=== PATIENT | female | born 1995 | race Caucasian/White ===

== ENCOUNTER 2017-06-28 13:12 | Observation (INO) | payer OTHER ==
[2017-06-28] MEDS ORDERED: Sodium Chloride 0.9% 1000 ML 1,000 ML IV STA (13:15)
--- NOTE | 2017-06-28 13:21 | ERPHSYRPT ---
- History of Present Illness Time Seen by Provider: 06/28/17 13:16 Source: patient Exam Limitations: no limitations Physician History: This is a 22-year-old white female who states that she is 5 months who is brought by the medics with complaint that the patient took 30 trazodone (150 mg tablets) Approximately 30 minutes prior to arrival Patient states that she was upset with her sister she states that her sister yells at her a lot and I had threatened to kick her out of her house. Patient states she has not taken anything other than the trazodone Patient was noted to be somnolent by the medics and was given Narcan 1 mg IV prior to arrival. Patient states she has had a suicide attempt in the past. Patient does have a history of depression past medical history includes depression Past surgical history negative Social history patient denies tobacco alcohol or illicit drug use Timing/Duration: today (him 30 minutes prior to arrival) Severity: moderate Modifying Factors: Improves With: medication (patient took 30 (150 mg) trazodone tablets) Associated Symptoms: vomiting, No shortness of breath, No heartburn, No diaphoresis, No cough, No chills, No chest pain, No fever, No headaches, No loss of appetite, No malaise, No rash, No syncope, No seizure, No weakness Allergies/Adverse Reactions: aripiprazole [From Abilify] Allergy (Verified 06/28/17 13:20) ziprasidone [From Geodon] Allergy (Verified 06/28/17 13:20) - Review of Systems Constitutional: No Fever, No Chills Eyes: No Symptoms Ears, Nose, & Throat: No Symptoms Respiratory: No Cough, No Dyspnea Cardiac: No Chest Pain, No Edema, No Syncope Abdominal/Gastrointestinal: Nausea, Vomiting Genitourinary Symptoms: (20 week ), No Dysuria Musculoskeletal: No Back Pain, No Neck Pain Skin: No Rash Psychological: Suicidal Ideations, Other (intentional overdose trazodone) Endocrine: No Symptoms - Past Medical History Pertinent Past Medical History: Yes Other Medical History: patient states she is 20 weeks , lidocaine nurse states patient 19 weeks by dates,. patient with history of depression history of suicide attempt in the past - Past Surgical History Past Surgical History: No - Nursing Vital Signs Nursing Vital Signs: Initial Vital Signs Temperature 99 F 06/28/17 13:23 Pulse Rate 84 05/20/18 13:23 Respiratory Rate 16 06/28/17 13:23 Blood Pressure 127/64 06/28/17 13:23 O2 Sat by Pulse Oximetry 95 06/28/17 13:23 Pain Scale Pain Intensity 0 - Physical Exam General Appearance: other (well-developed white female, somnolent but arouses easily) Eye Exam: PERRL/EOMI, eyes nml inspection Ears, Nose, Throat Exam: normal ENT inspection, TMs normal, pharynx normal, moist mucous membranes Neck Exam: normal inspection, non-tender, supple, full range of motion Respiratory Exam: normal breath sounds, lungs clear, No respiratory distress Cardiovascular Exam: regular rate/rhythm, normal heart sounds, normal peripheral pulses Gastrointestinal/Abdomen Exam: soft, normal bowel sounds, other ( heart tones 140 per nurse), No tenderness, No mass Back Exam: normal inspection, normal range of motion, No CVA tenderness, No vertebral tenderness Extremity Exam: normal inspection, normal range of motion, pelvis stable Neurologic Exam: oriented x 3, cooperative, blanking press operator II-XII nml as tested, other ( well-developed white female somnolent but arouses easily oriented 3 GCS equals 15 full range of motion all extremities) Skin Exam: normal color, warm, dry, No rash Lymphatic Exam: No adenopathy SpO2 Interpretation: normal (95%hhim. 95) - Course Nursing assessment & vital signs reviewed: Yes EKG Interpreted by Me: RATE (80 bpm), Sinus Rhythm, NORMAL AXIS, Other (EKG: Normal sinus rhythm 80 bpm, normal axis, no acute ST or T wave changes, essentially normal EKG) Ordered Tests: Active Orders 24 hr Category Date Time Status EKG-ER Only STAT Care 06/28/17 13:15 Active IV Insertion STAT Care 06/28/17 13:15 Active Pulse Oximetry (ED) STAT Care 06/28/17 13:15 Active ACETAMINOPHEN Stat Lab 06/28/17 13:27 Completed CBC W DIFF Stat Lab 06/28/17 13:27 Completed CMP Stat Lab 06/28/17 13:27 Completed CULTURE,URINE Stat Lab 06/28/17 13:45 Received ETHYL ALCOHOL Stat Lab 06/28/17 13:27 Completed HCG QUALITATIVE,SERUM Stat Lab 06/28/17 13:27 Completed Manual Differential NC Stat Lab 06/28/17 13:27 Completed SALICYLATE Stat Lab 06/28/17 13:27 Completed UA W/ MICROSCOPIC Stat Lab 06/28/17 13:45 Completed Urine Triage Profile Stat Lab 06/28/17 13:45 Completed Medication Summary Generic Name Dose Route Start Last Admin Trade Name Mode PRN Reason Stop Dose Admin Magnesium Sulfate/Dextrose 100 mls @ 200 mls/hr 06/28/17 14:15 06/28/17 14:30 Magnesium 1 Gm / 100 Ml D5w IV 06/28/17 15:44 200 mls/hr Q1H SURAJ Administration Potassium Chloride 100 mls @ 50 mls/hr 06/28/17 14:15 06/28/17 14:16 Potassium Chloride 20 Meq In Water 100ml IV 06/28/17 18:14 50 mls/hr Q2H SURAJ Administration Discontinued Medications Generic Name Dose Route Start Last Admin Trade Name Mode PRN Reason Stop Dose Admin Sodium Chloride 1,000 mls @ 999 mls/hr 06/28/17 13:15 06/28/17 13:37 Sodium Chloride 0.9% 1000 Ml IV 06/28/17 14:15 999 mls/hr .Q1H1M STA Administration Sodium Chloride Confirm 06/28/17 13:36 Sodium Chloride 0.9% 1000 Ml Administered 06/28/17 13:37 Dose 1,000 mls @ ud .ROUTE .[facility] Lab/Rad Data: Laboratory Result Diagrams 06/28/17 13:27 06/28/17 13:27 Laboratory Results 06/28/17 06/28/17 06/28/17 Range/Units 13:45 13:45 13:27 WBC (4.0-10.5) K/mm3 RBC (4.1-5.4) M/mm3 Hgb (12.0-16.0) gm/dl Hct (35-47) % MCV (78-100) fl MCH (26-32) pg MCHC (32-36) g/dl RDW (11.5-14.0) % Plt Count (150-450) K/mm3 MPV (6-9.5) fl Segmented Neutrophils (36.0-66.0) % Band Neutrophils (0.0-2.0) % Lymphocytes (Manual) (24-44) % Monocytes (Manual) (0.0-12.0) % Platelet Estimate (NORMAL) RBC Morphology Anisocytosis Sodium (137-145) mmol/L Potassium (3.5-5.1) mmol/L Chloride (98-107) mmol/L Carbon Dioxide (22-30) mmol/L Anion Gap (5-15) MEQ/L BUN (7-17) mg/dL Creatinine (0.52-1.04) mg/dL Estimated GFR ML/MIN Glucose (74-106) mg/dL Calcium (8.4-10.2) mg/dL Total Bilirubin (0.2-1.3) mg/dL AST (14-36) U/L ALT (0-35) U/L Alkaline Phosphatase (38-126) U/L Serum Total Protein (6.3-8.2) g/dL Albumin (3.5-5.0) g/dL Serum , Qual POSITIVE (Negative) Ur Collection Type CATH Urine Color YELLOW (YELLOW) Urine Appearance CLEAR (CLEAR) Urine pH 5.0 (5-6) Ur Specific Harvey 1.025 (1.005-1.025) Urine Protein 100 (Negative) Urine Ketones MODERATE (NEGATIVE) Urine Blood 5-10 (0-5) Lexa/ul Urine Nitrite NEGATIVE (NEGATIVE) Urine Bilirubin NEGATIVE (NEGATIVE) Urine Urobilinogen 8 (0-1) mg/dL Ur Leukocyte Esterase NEGATIVE (NEGATIVE) Urine Microscopic RBC 0-2 (0-2) /HPF Urine Microscopic WBC 5-10 (0-5) /HPF Ur Epithelial Cells MODERATE (FEW) /HPF Urine Bacteria FEW (NEGATIVE) /HPF Hyaline Casts 2-5 (0-2) /LPF Urine Mucus MANY (NEGATIVE) /HPF Urine Culture Reflexed YES (NO) Urine Glucose NEGATIVE (NEGATIVE) mg/dL Salicylates (2-20) mg/dL Urine Opiates Level NEGATIVE (NEGATIVE) Ur Methadone NEGATIVE (NEGATIVE) Acetaminophen (10-30) ug/ml Urine Barbiturates NEGATIVE (NEGATIVE) Ur Phencyclidine (PCP) NEGATIVE (NEGATIVE) Urine Amphetamine NEGATIVE (NEGATIVE) U Benzodiazepine Level NEGATIVE (NEGATIVE) Urine Cocaine NEGATIVE (NEGATIVE) Urine Marijuana (THC) NEGATIVE (NEGATIVE) Ethyl Alcohol (0-10) mg/dL Specimen Received 06/28/17 1345 06/28/17 06/28/17 Range/Units 13:27 13:27 WBC 10.1 (4.0-10.5) K/mm3 RBC 3.91 L (4.1-5.4) M/mm3 Hgb 11.9 L (12.0-16.0) gm/dl Hct 33.8 L (35-47) % MCV 86.4 (78-100) fl MCH 30.4 (26-32) pg MCHC 35.2 (32-36) g/dl RDW 12.4 (11.5-14.0) % Plt Count 193 (150-450) K/mm3 MPV 10.1 H (6-9.5) fl Segmented Neutrophils 78 H (36.0-66.0) % Band Neutrophils 1 (0.0-2.0) % Lymphocytes (Manual) 14 L (24-44) % Monocytes (Manual) 7 (0.0-12.0) % Platelet Estimate NORMAL (NORMAL) RBC Morphology ABNORMAL Anisocytosis 1+ Sodium 138 (137-145) mmol/L Potassium 2.9 L* (3.5-5.1) mmol/L Chloride 105 (98-107) mmol/L Carbon Dioxide 20 L (22-30) mmol/L Anion Gap 15.1 H (5-15) MEQ/L BUN 5 L (7-17) mg/dL Creatinine 0.41 L (0.52-1.04) mg/dL Estimated GFR > 60.0 ML/MIN Glucose 105 (74-106) mg/dL Calcium 9.3 (8.4-10.2) mg/dL Total Bilirubin 0.20 (0.2-1.3) mg/dL AST 20 (14-36) U/L ALT 19 (0-35) U/L Alkaline Phosphatase 82 (38-126) U/L Serum Total Protein 6.4 (6.3-8.2) g/dL Albumin 3.7 (3.5-5.0) g/dL Serum , Qual (Negative) Ur Collection Type Urine Color (YELLOW) Urine Appearance (CLEAR) Urine pH (5-6) Ur Specific Harvey (1.005-1.025) Urine Protein (Negative) Urine Ketones (NEGATIVE) Urine Blood (0-5) Lexa/ul Urine Nitrite (NEGATIVE) Urine Bilirubin (NEGATIVE) Urine Urobilinogen (0-1) mg/dL Ur Leukocyte Esterase (NEGATIVE) Urine Microscopic RBC (0-2) /HPF Urine Microscopic WBC (0-5) /HPF Ur Epithelial Cells (FEW) /HPF Urine Bacteria (NEGATIVE) /HPF Hyaline Casts (0-2) /LPF Urine Mucus (NEGATIVE) /HPF Urine Culture Reflexed (NO) Urine Glucose (NEGATIVE) mg/dL Salicylates < 1.0 L (2-20) mg/dL Urine Opiates Level (NEGATIVE) Ur Methadone (NEGATIVE) Acetaminophen < 10 L (10-30) ug/ml Urine Barbiturates (NEGATIVE) Ur Phencyclidine (PCP) (NEGATIVE) Urine Amphetamine (NEGATIVE) U Benzodiazepine Level (NEGATIVE) Urine Cocaine (NEGATIVE) Urine Marijuana (THC) (NEGATIVE) Ethyl Alcohol < 10 (0-10) mg/dL Specimen Received - Progress Progress: improved Progress Note: 06/28/17 13:24 This is a 22-year-old white female who states she is 5 months who is brought by medics with complaint of intentional overdose with trazodone 30 150 milligram tablets approximately 30 minutes prior to arrival. Patient does have a history of depression in the past. Has had a history of suicide attempt in the past. She states that she was upset because her sister yells at her a lot and was threatening to throw her out of the house. Patient did vomit prior to arrival as evidenced by emesis which was noted on her shirt. She denies any illicit drugs or alcohol use. She states she has not taken any thing other than trazodone. Nurses calculated patient's estimated gestational age of her baby to be 19 weeks. heart tones are 140. Patient is a somnolent but arouses quite easily and moves all extremities. IV normal saline has been ordered appropriate labs are ordered nurses will contact poison control 06/28/17 14:16 Poison control recommends IV potassium and magnesium. They recommended giving the patient's potassium up to around 4.5 patient's potassium at this time is 2.9. I've discussed the case briefly with Dr. Urrutia who is [employer] consultant for OB and for the house. He is in agreement with the of magnesium and potassium. He wishes that I discussed the patient's case with patient's OB doctor (Dr. Adam's) patient's urine drug screen negative acetaminophen level less than 10 salicylate less than 1.0 alcohol less than 10. 06/28/17 14:[address] Adam's, the patient's OB physician she requests that Dr. Urrutia manage the patient's case at this time including management of her electrolytes she also requests that the patient obtain a psych consult She states once patient is stabilized, she will continue to follow the patient for care. 06/28/17 14:40 I've discussed the patient again with Dr. Urrutia will place patient on ICU telemetry, heart tones every shift Patient is receiving 40 mEq K rider also magnesium 2 g IV Will continue normal saline 100 mL per hour Will order psych consult for patient Patient will need acetaminophen level IV hours after last draw salicylate level IV hours after last draw And a potassium level IV hours after potassium has infused - Departure Time of Disposition: 14:41 Departure Disposition: Observation Clinical Impression: intentional overdose of trazodone, Suicidal ideation, Hypokalemia Qualifiers: Weeks of gestation: 19 weeks Qualified Code(s): Z3A.19 - 19 weeks gestation of Condition: Fair Critical Care Time: No
[2017-06-28 13:30] LABS: Hematocrit 33.8 % (35-47); Hemoglobin 11.9 gm/dl (12.0-16.0); Mean Cell Volume 86.4 fl (78-100); Mean Corpuscular Hemoglobin 30.4 pg (26-32); Mean Corpuscular Hgb Concent. 35.2 g/dl (32-36); Mean Platelet Volume 10.1 fl (6-9.5); Platelet Count 193 K/mm3 (150-450); Red Blood Count 3.91 M/mm3 (4.1-5.4); Red Cell Distribution Width 12.4 % (11.5-14.0); White Blood Count 10.1 K/mm3 (4.0-10.5)
[2017-06-28] MEDS ORDERED: Sodium Chloride 0.9% 1000 ML 2,000 ML ONE (13:36)
[2017-06-28 13:50] LABS: ALBUMIN 3.7 g/dL (3.5-5.0); ALKALINE PHOSPHATASE 82 U/L (38-126); ANION GAP 15.1 MEQ/L (5-15); BLOOD UREA NITROGEN 5 mg/dL (7-17); CHLORIDE 105 mmol/L (98-107); Calcium 9.3 mg/dL (8.4-10.2); Carbon Dioxide 20 mmol/L (22-30); Creatinine 1 0.41 mg/dL (0.52-1.04); Glucose 105 mg/dL (74-106); SGOT/AST 20 U/L (14-36); SGPT/ALT 19 U/L (0-35); SODIUM 138 mmol/L (137-145); Total Protein 6.4 g/dL (6.3-8.2)
[2017-06-28 13:52] LABS: Appearance CLEAR (CLEAR); Bilirubin NEGATIVE (NEGATIVE); Glucose NEGATIVE (NEGATIVE); Ketones MODERATE (NEGATIVE); Leukocyte Esterase NEGATIVE (NEGATIVE); Nitrite NEGATIVE (NEGATIVE); Protein,Urine Dip 100 (Negative); Specific Gravity 1.025 (1.005-1.025); Urobilinogen 8 mg/dL (0-1)
[2017-06-28 13:58] LABS: ACETAMINOPHEN < 10 ug/ml (10-30); ETHYL ALCOHOL < 10 mg/dL (0-10); Potassium 2.9 mmol/L (3.5-5.1); SALICYLATE < 1.0 mg/dL (2-20)
[2017-06-28 14:04] LABS: Bacteria FEW /HPF (NEGATIVE); Epithelial Cells MODERATE /HPF (FEW); Mucus MANY /HPF (NEGATIVE); RBC 0-2 /HPF (0-2)
[2017-06-28 14:07] LABS: Amphetamine,Urine NEGATIVE (NEGATIVE); Barbiturate,Urine NEGATIVE (NEGATIVE); Benzodiazepine,Urine NEGATIVE (NEGATIVE); Cocaine,Urine NEGATIVE (NEGATIVE); Methadone,Urine NEGATIVE (NEGATIVE); Opiate,Urine NEGATIVE (NEGATIVE); PCP,Urine NEGATIVE (NEGATIVE); THC,Urine NEGATIVE (NEGATIVE)
[2017-06-28 14:09] LABS: BAND 1 % (0.0-2.0); Lymphocytes 14 % (24-44); Monocyte 7 % (0.0-12.0); Neutrophils 78 % (36.0-66.0); Platelet Estimate NORMAL (NORMAL); Total Cells Counted 100
[2017-06-28 14:10] LABS: ANISOCYTOSIS 1+
[2017-06-28] MEDS ORDERED: POTASSIUM CHLORIDE 20 mEq IN WATER 100ML 200 ML IV ONE (14:10)
[2017-06-28] MEDS ORDERED: Magnesium 1 Gm / 100 Ml D5W*** 200 ML IV ONE (14:10)
[2017-06-28] MEDS ORDERED: POTASSIUM CHLORIDE 20 mEq IN WATER 100ML 100 ML IV SCH (14:15)
[2017-06-28] MEDS: Magnesium 1 Gm / 100 Ml D5W*** 100 ML IV SCH ×2 (14:16→14:30)
[2017-06-28] MEDS ORDERED: Sodium Chloride 0.9% 1000 ML 1,000 ML IV SCH (15:18)
[2017-06-28 23:09] LABS: ANION GAP 12.8 MEQ/L (5-15); Potassium 3.3 mmol/L (3.5-5.1)
[2017-06-29] MEDS ORDERED: K-LYTE 25 MEQ PO ONE (00:15)
[2017-06-29] MEDS: Sodium Chloride 0.9% W/ 20 mEq KCl/LITER 1,000 ML IV SCH ×2 (00:15→10:36)
[2017-06-29 05:28] LABS: Granulocyte Absolute (ANC) 7.22 (1.4-6.9); Hematocrit 31.1 % (35-47); Hemoglobin 10.6 gm/dl (12.0-16.0); Mean Cell Volume 88.6 fl (78-100); Mean Corpuscular Hgb Concent. 34.1 g/dl (32-36); Mean Platelet Volume 10.3 fl (6-9.5); Platelet Count 195 K/mm3 (150-450); Red Blood Count 3.51 M/mm3 (4.1-5.4); Red Cell Distribution Width 12.6 % (11.5-14.0)
[2017-06-29 05:35] LABS: Mean Corpuscular Hemoglobin 30.1 pg (26-32)
[2017-06-29 05:44] LABS: ALKALINE PHOSPHATASE 67 U/L (38-126); ANION GAP 10.4 MEQ/L (5-15); BLOOD UREA NITROGEN 3 mg/dL (7-17); CHLORIDE 109 mmol/L (98-107); Calcium 8.3 mg/dL (8.4-10.2); Carbon Dioxide 22 mmol/L (22-30); Creatinine 1 0.41 mg/dL (0.52-1.04); Glucose 82 mg/dL (74-106); Potassium 3.9 mmol/L (3.5-5.1); SGOT/AST 18 U/L (14-36); SGPT/ALT 18 U/L (0-35); SODIUM 138 mmol/L (137-145); Total Protein 5.9 g/dL (6.3-8.2)
[2017-06-29 05:46] LABS: Lymphocytes 14 % (24-44); Monocyte 1 % (0.0-12.0); Neutrophils 85 % (36.0-66.0); Total Cells Counted 100
[2017-06-29 05:47] LABS: Platelet Estimate NORMAL (NORMAL)
--- NOTE | 2017-06-29 08:08 | PCM.HP ---
History of Present Illness - Chief Complaint Chief Complaint: OVERDOSE History of Present Illness: is a 22 year old female at approximately 19 weeks EGA who came to the ER yesterday for a suicide attempt. Patient is under the OB care of Dr Marie in [facility]. She reports she is living with her sister and her sister was "being mean" to her all day yesterday and kept yelling at her even though she states she had done nothing wrong. She reports her sister threatened to throw her out of her house and that she has no where else to live. She is sad because her entire family hates her and she has been thrown out of everywhere else. She has a son who will be 2 years old in September and she reports he lives with his father. She has a history of self-injurious behavior as a child by cutting her wrists and putting belts around her neck. She has been hospitalized at the [facility] in the past. She took 30 tablets of 150mg trazodone yesterday with the intent to kill herself. She states today she does not feel suicidal because everyone in the hospital is being nice to her, she expressed a desire to live at this point. - Review of Systems Constitutional: No Fever, No Chills Respiratory: No Cough, No Short Of Breath Cardiac: No Chest Pain, No Edema, No Syncope Abdominal/Gastrointestinal: No Abdominal Pain, No Nausea, No Vomiting, No Diarrhea Genitourinary Symptoms: No Dysuria Skin: No Rash Neurological: No Dizziness, No Focal Weakness, No Sensory Changes Psychological: No Alcohol Abuse, No Drug Abuse Medications & Allergies Home Medications: Home Medication List Vits W-Ca,Fe,FA(<1Mg) [] 1 each PO DAILY 06/28/17 [History Confirmed 06/28/17] Trazodone HCl 150 mg PO HSPRN PRN 06/28/17 [History Confirmed 06/28/17] Allergies/Adverse Reactions: Allergies Allergy/AdvReac Type Severity Reaction Status Date / Time aripiprazole [From Abilify] Allergy Verified 06/28/17 13:20 ziprasidone [From Geodon] Allergy Verified 06/28/17 13:20 - Past Medical History Past Medical History: Yes Comment: patient states she is 20 weeks , lidocaine nurse states patient 19 weeks by dates,. patient with history of depression history of suicide attempt in the past - Female History Hx Last Menstrual Period: 02/23/17 Are you now?: Yes - Past Surgical History Past Surgical History: No Female Surgical History: Section - Social History Smoking Status: Never smoker Exposure to second hand smoke: No Alcohol: None Drug Use: none - Physical Exam Vital Signs: Vital Signs - 24 hr Temp Pulse Resp BP Pulse Ox 06/29/17 07:50 82 06/29/17 07:00 98.7 F 85 16 115/62 93 L 06/29/17 06:00 90 16 106/67 95 06/29/17 05:00 78 14 92/60 95 06/29/17 04:00 98.6 F 77 14 106/63 95 06/29/17 03:00 78 14 91/65 95 06/29/17 02:00 75 15 96/58 95 06/29/17 01:00 81 16 98/54 97 06/29/17 00:00 84 15 102/56 95 06/28/17 23:17 79 06/28/17 23:00 99.3 F 79 17 112/63 95 06/28/17 19:57 98.9 F 84 20 99/56 96 06/28/17 19:00 93 H 19 107/60 96 06/28/17 18:00 87 18 101/57 95 06/28/17 17:00 82 16 102/59 95 06/28/17 16:00 88 16 104/63 97 06/28/17 15:29 98.8 F 98 H 16 104/63 97 06/28/17 15:18 96 06/28/17 14:50 101 H 16 110/56 96 06/28/17 14:03 78 18 101/57 96 06/28/17 13:24 95 06/28/17 13:23 99 F 84 16 127/64 95 General Appearance: no apparent distress, alert Neurologic Exam: alert, oriented x 3, cooperative, normal mood/affect, nml cerebellar function, nml station & gait, sensation nml, No motor deficits Eye Exam: PERRL/EOMI, eyes nml inspection Respiratory Exam: normal breath sounds, lungs clear, No respiratory distress Cardiovascular Exam: regular rate/rhythm, normal heart sounds, normal peripheral pulses Gastrointestinal/Abdomen Exam: soft, normal bowel sounds, No tenderness, No mass Extremity Exam: normal inspection, normal range of motion, pelvis stable Skin Exam: normal color, warm, dry, No rash Results - Labs Lab/Micro Results: Lab Results-Last 24 Hours 06/28/17 06/28/17 06/28/17 Range/Units 19:31 19:31 22:15 WBC (4.0-10.5) K/mm3 RBC (4.1-5.4) M/mm3 Hgb (12.0-16.0) gm/dl Hct (35-47) % MCV (78-100) fl MCH (26-32) pg MCHC (32-36) g/dl RDW (11.5-14.0) % Plt Count (150-450) K/mm3 MPV (6-9.5) fl Absolute Granulocytes (1.4-6.9) Segmented Neutrophils (36.0-66.0) % Lymphocytes (Manual) (24-44) % Monocytes (Manual) (0.0-12.0) % Platelet Estimate (NORMAL) RBC Morphology Sodium 137 (137-145) mmol/L Potassium 3.7 3.3 L (3.5-5.1) mmol/L Chloride 108 H (98-107) mmol/L Carbon Dioxide 20 L (22-30) mmol/L Anion Gap 12.8 (5-15) MEQ/L BUN (7-17) mg/dL Creatinine (0.52-1.04) mg/dL Estimated GFR ML/MIN Glucose (74-106) mg/dL Calcium (8.4-10.2) mg/dL Total Bilirubin (0.2-1.3) mg/dL AST (14-36) U/L ALT (0-35) U/L Alkaline Phosphatase (38-126) U/L Serum Total Protein (6.3-8.2) g/dL Albumin (3.5-5.0) g/dL Acetaminophen < 10 L (10-30) ug/ml 06/29/17 06/29/17 Range/Units 05:13 05:13 WBC 10.0 (4.0-10.5) K/mm3 RBC 3.51 L (4.1-5.4) M/mm3 Hgb 10.6 L (12.0-16.0) gm/dl Hct 31.1 L (35-47) % MCV 88.6 (78-100) fl MCH 30.1 (26-32) pg MCHC 34.1 (32-36) g/dl RDW 12.6 (11.5-14.0) % Plt Count 195 (150-450) K/mm3 MPV 10.3 H (6-9.5) fl Absolute Granulocytes 7.22 H (1.4-6.9) Segmented Neutrophils 85 H (36.0-66.0) % Lymphocytes (Manual) 14 L (24-44) % Monocytes (Manual) 1 (0.0-12.0) % Platelet Estimate NORMAL (NORMAL) RBC Morphology NORMAL Sodium 138 (137-145) mmol/L Potassium 3.9 (3.5-5.1) mmol/L Chloride 109 H (98-107) mmol/L Carbon Dioxide 22 (22-30) mmol/L Anion Gap 10.4 (5-15) MEQ/L BUN 3 L (7-17) mg/dL Creatinine 0.41 L (0.52-1.04) mg/dL Estimated GFR > 60.0 ML/MIN Glucose 82 (74-106) mg/dL Calcium 8.3 L (8.4-10.2) mg/dL Total Bilirubin 0.20 (0.2-1.3) mg/dL AST 18 (14-36) U/L ALT 18 (0-35) U/L Alkaline Phosphatase 67 (38-126) U/L Serum Total Protein 5.9 L (6.3-8.2) g/dL Albumin 3.0 L (3.5-5.0) g/dL Acetaminophen (10-30) ug/ml Assessment/Plan (1) Overdose Current Visit: Yes Status: Acute Assessment & Plan: trazodone intentional overdose, nothing worrisome on telemetry or EKG, patient is alert and oriented this morning. will obtain psych consult Code(s): T50.901A - POISONING BY UNSP DRUG/MEDS/BIOL SUBST, ACCIDENTAL, INIT (2) Hypokalemia Current Visit: Yes Status: Acute Assessment & Plan: replaced Code(s): E87.6 - HYPOKALEMIA (3) Current Visit: Yes Status: Acute Qualifiers: Weeks of gestation: 19 weeks Qualified Code(s): Z3A.19 - 19 weeks gestation of Assessment & Plan: will f/u with Dr Heard after discharge Code(s): Z34.90 - ENCNTR FOR SUPRVSN OF NORMAL , UNSP, UNSP TRIMESTER (4) Suicidal ideation Current Visit: Yes Status: Acute Assessment & Plan: patient's history if worrisome Code(s): R45.851 - SUICIDAL IDEATIONS
[2017-06-29] MEDS ORDERED: THERAGRAN MULTIVITAMIN PO SCH (10:00)
[2017-06-29] MEDS ORDERED: NON-FORMULARY ITEM (Prenatal Vits W-Ca,Fe,Fa(<1mg) [Prenatal] 1 EACH) PO SCH (10:00)
--- NOTE | 2017-06-29 16:10 | PCM.DCORD ---
- Discharge Disposition: XFER OTHER Condition: Good Prescriptions: Continue Vits W-Ca,Fe,FA(<1Mg) [] 1 each PO DAILY Discontinued Trazodone HCl 150 mg PO HSPRN PRN PRN Reason: Insomnia Follow up with: DOCTOR,NO FAMILY [Primary Care Provider] - 1 Week Forms: Ambulance Transport Record, Transfer Record [employer]ency
[2017-06-29 16:47] VITALS: BP 104/65; PULSE 101; O2SAT 96
== END 2017-06-29 16:30 ==
LOC: ED 13:12 → ICU 15:17 → INTOOBSV 15:17
PROVIDERS: ADMIT Family Medicine; ATTEND Family Medicine
DX: O9A.212 Injury, poisoning and certain other consequences of external causes complicating pregnancy, second trimester (principal); T43.212A Poisoning by selective serotonin and norepinephrine reuptake inhibitors, intentional self-harm, initial encounter; Z3A.19 19 weeks gestation of pregnancy; Y92.099 Unspecified place in other non-institutional residence as the place of occurrence of the external cause; E87.6 Hypokalemia; R45.851 Suicidal ideations
CPT/HCPCS: 36000; 36415; 80051; 80053; 80307; 81000; 84132; 84703; 85025; 87086; 90791; 93005; 93268; 96360; 96365; 96367; 99285; G0481; J3475; J3480; Q3014; A9270-GY; G0378; G0480